=== PATIENT | male | born 1960 | race Caucasian/White ===

== ENCOUNTER 2016-11-30 07:50 | Day surgery (SDC) | payer BC ==
[~2016-11-30 07:50] MED LIST: Lactated Ringers 1,000 ML IV SCH; Lidocaine 1%/Sod Bicarbonate in NS 8.4% 1 ML Syringe PRN; Sodium Chloride 0.9% 10 ML Syringe FLUSH PRN
--- NOTE | 2016-11-30 08:20 | PCM.PREANE ---
Preanesthetic Assessment - Anesthesia/Transfusion/Family Hx Anesthesia History: Prior Anesthesia Without Reaction Family History of Anesthesia Reaction: No Transfusion History: No Prior Transfusion(s) - Review of Systems General: No Symptoms Pulmonary: No Symptoms Cardiovascular: No Symptoms Gastrointestinal: No Symptoms Neurological: No Symptoms Other: Reports: Diabetes - Physical Assessment NPO Status Date: 11/29/16 NPO Status Time: 17:00 Pulse: 74 O2 Sat by Pulse Oximetry: 96 Respiratory Rate: 16 Blood Pressure: 124/59 Temperature: 98 F Height: 5 ft 6 in Weight: 105.687 kg ASA Class: 2 Mental Status: Alert & Oriented x3 Airway Class: Mallampati = 1 Dentition: Reports: Normal Dentition Thyro-Mental Finger Breadths: 3 Mouth Opening Finger Breadths: 3 ROM/Head Extension: Full Lungs: Clear to Auscultation, Normal Respiratory Effort Cardiovascular: Regular Rate, Regular Rhythm - Allergies Allergies/Adverse Reactions: Allergies Allergy/AdvReac Type Severity Reaction Status Date / Time bee venom protein (honey bee) Allergy Cannot Verified 11/29/16 09:48 Remember - Blood Blood Available: No - Acknowledgements Anesthesia Type Planned: MAC Pt an Appropriate Candidate for the Planned Anesthesia: Yes Alternatives and Risks of Anesthesia Discussed w Pt/Guardian: Yes Pt/Guardian Understands and Agrees with Anesthesia Plan: Yes PreAnesthesia Questionnaire Cardiovascular History: Reports: High Cholesterol Other Cardiovascular History: dyslipidemia, Other Respiratory History: snoring Genitourinary History: Reports: Other (See Below) Other Genitourinary History: erectile dysfunction, hematuria Endocrine/Metabolic History: Reports: Diabetes, Type II, Obesity/BMI 30+ Other Endocrine/Metabolic History: proteinuria, glucosuria. Oncologic (Cancer) History: Reports: None - Past Surgical History GI Surgical History: Reports: Hernia Repair/Other - SUBSTANCE USE Smoking Status *Q: Never Smoker Tobacco Use Within Last Twelve Months: No Second Hand Smoke Exposure: No Days Per Week of Alcohol Use: 1 Number of Drinks Per Day: 1 Total Drinks Per Week: 1 Recreational Drug Use History: No - HOME MEDS Home Medications: Home Meds Simvastatin [Zocor] 10 mg PO DAILY 11/29/16 [History] Triamcinolone Acet/Dimethicone [Dermacinrx [place]] 11/29/16 [History] metFORMIN HCl [Metformin HCl] 1,000 mg PO DAILY 11/29/16 [History] - CURRENT (IN HOUSE) MEDS Current Meds: Current Medications Lactated Ringer's (Ringers, Lactated) 1,000 mls @ 125 mls/hr IV ASDIRECTED REBEKA Stop: 11/30/16 23:00 Lidocaine/Sodium Bicarbonate (Buffered Lidocaine 1% In Ns 8.4%) 0.25 ml .XX ONETIME PRN PRN Reason: Prior to IV Start Stop: 11/30/16 18:00 Sodium Chloride (Saline Flush) 10 ml FLUSH ASDIRECTED PRN PRN Reason: Keep Vein Open Stop: 11/30/16 18:00
[2016-11-30] MEDS ORDERED: Lidocaine 1% 2 ML ONE ×2 (08:52→08:53)
[2016-11-30] MEDS ORDERED: Propofol 200 MG/20 ML SDV ONE (08:52)
[2016-11-30] MEDS ORDERED: fentaNYL 100 MCG/2 ML SDV ONE (08:52)
--- NOTE | 2016-11-30 09:31 | PCM.OPNOTE ---
- General Post-Op/Procedure Note Date of Surgery/Procedure: 11/30/16 Operative Procedure(s): Colonoscopy Findings: Normal examination Pre Op Diagnosis: heme positive stools Post-Op Diagnosis: Endoscopically normal colon and rectum Anesthesia Technique: MAC, Moderate Sedation Primary Surgeon: Mike Chan Pathology: None EBL in mLs: 0 Complications: None Condition: Good Free Text/Narrative:: After adequate IV sedation and analgesia with monitoring the patient was placed on his left side. Perianal inspection and digital rectal examination of the anal canal was normal. The prostate was normal. A lubricated colonoscope was inserted into the rectum and advanced to the cecum without difficulty. The bowel preparation was excellent. The cecum, ascending colon, transverse, and descending colons were normal endoscopically. There were no inflammatory changes seen acute or chronic. The sigmoid and rectum likewise were unremarkable in both views. Photographs are taken for the patient and for the record. Air was removed as I finished the procedure.
--- NOTE | 2016-11-30 09:40 | PCM48HPAN ---
Post Anesthesia Note - EVALUATION WITHIN 48HRS OF ANESTHETIC Vital Signs in Normal Range: Yes Patient Participated in Evaluation: Yes Respiratory Function Stable: Yes Airway Patent: Yes Cardiovascular Function Stable: Yes Hydration Status Stable: Yes Pain Control Satisfactory: Yes Nausea and Vomiting Control Satisfactory: Yes Mental Status Recovered: Yes - COMMENTS/OBSERVATIONS Free Text/Narrative:: Verbalizing comfort, requesting some water.
[2016-11-30 09:41] VITALS: BP 128/85
== END 2016-11-30 10:00 | disposition home or self-care (01) ==
LOC: JD.SDS 07:50
PROVIDERS: ATTEND Surgery
DX: R19.5 Other fecal abnormalities (principal); E11.9 Type 2 diabetes mellitus without complications; E78.2 Mixed hyperlipidemia; Z68.41 Body mass index [BMI] 40.0-44.9, adult; Z91.030 Bee allergy status; Z79.84 Long term (current) use of oral hypoglycemic drugs; Z79.899 Other long term (current) drug therapy; Z98.890 Other specified postprocedural states
CPT/HCPCS: 45378; 82962; J3010; J7120; 00810; J2704

== ENCOUNTER 2017-01-11 07:23 | Emergency (ER) | payer BC, OTHER ==
--- NOTE | 2017-01-11 07:49 | EDM.PDOC ---
ED HPI GENERAL MEDICAL PROBLEM - General Chief Complaint: Back Pain or Injury Stated Complaint: BACK INJURY Time Seen by Provider: 01/11/17 07:48 Source of Information: Reports: Patient, RN Notes Reviewed - History of Present Illness INITIAL COMMENTS - FREE TEXT/NARRATIVE: 56-year-old male comes in with left low back, buttock discomfort radiating to left lower extremity. This came on yesterday afternoon at work. 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 He Lifted a bulky heavy package earlier in the morning but did okay with that. Had fairly sudden onset of the discomfort sometime later mid afternoon yesterday. The pain Continues starting in the left buttock area and radiating down the left lower extremity clear down to the calf muscle. He has had intermittent paresthesias of the left foot. He had Symptoms of this nature about 2 or 2-1/2 years ago diagnosed as sciatica and did end up getting an injection that did give him very good relief having done well up until this episode starting yesterday. He has taken some high-dose ibuprofen at home and also did take a couple of leftover pain pills last evening with his last oxycodone about this 8 hours ago. He has pain at rest, much worse with certain types of motion. He also is type II diabetic on metformin. 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 Lower Back Pain Score (Numeric/FACES): 7 - Related Data Allergies Allergy/AdvReac Type Severity Reaction Status Date / Time bee venom protein (honey bee) Allergy Cannot Verified 01/11/17 07:39 Remember Home Meds: Home Meds Simvastatin [Zocor] 10 mg PO DAILY 11/29/16 [History] metFORMIN HCl [Metformin HCl] 1,000 mg PO DAILY 11/29/16 [History] Triamcinolone Acetonide 1 applic TP ASDIRECTED 11/30/16 [History] Past Medical History HEENT History: Reports: Impaired Vision Other HEENT History: wears eyeglasses Cardiovascular History: Reports: High Cholesterol Other Cardiovascular History: dyslipidemia, Respiratory History: Reports: Sleep Apnea Other Respiratory History: snoring, states sleeps on abdominal side. Genitourinary History: Reports: Other (See Below) Other Genitourinary History: erectile dysfunction, hematuria Musculoskeletal History: Reports: Back Pain, Chronic, Fracture, Other (See Below ) Other Musculoskeletal History: sciatic nerve issues after fall 2 1/2 yrs ago. Endocrine/Metabolic History: Reports: Diabetes, Type II, Obesity/BMI 30+ Other Endocrine/Metabolic History: proteinuria, glucosuria. Oncologic (Cancer) History: Reports: None Dermatologic History: Reports: Other (See Below) Other Dermatologic History: L) ankle rash. - Infectious Disease History Infectious Disease History: Reports: Chicken Pox - Past Surgical History GI Surgical History: Reports: Hernia Repair/Other Social & Family History - Tobacco Use Smoking Status *Q: Never Smoker Second Hand Smoke Exposure: No - Caffeine Use Caffeine Use: Reports: Coffee - Alcohol Use Days Per Week of Alcohol Use: 1 Number of Drinks Per Day: 1 Total Drinks Per Week: 1 - Recreational Drug Use Recreational Drug Use: No Drug Use in Last 12 Months: No ED ROS GENERAL - Review of Systems Review Of Systems: See Below Constitutional: Denies: Fever, Chills, Diaphoresis HEENT: Reports: No Symptoms Respiratory: Denies: Shortness of Breath, Pleuritic Chest Pain Cardiovascular: Denies: Chest Pain GI/Abdominal: Denies: Abdominal Pain, Nausea, Vomiting Musculoskeletal: Reports: Back Pain (L low back and buttock with sharp radiation down LLE) Skin: Reports: No Symptoms Neurological: Reports: Numbness (L foot, mostly gone at this time) ED EXAM,LOWER BACK PAIN/INJURY - Physical Exam Exam: See Below General Appearance: Alert, Mild Distress Throat/Mouth: Normal Inspection Head: Atraumatic Neck: Supple, Full Range of Motion Respiratory/Chest: No Respiratory Distress, Lungs Clear, Normal Breath Sounds Cardiovascular: Regular Rate, Rhythm GI/Abdominal: Soft, Non-Tender Back Exam: Other (there is tenderness of the left low back). No: Paraspinal Tenderness, Vertebral Tenderness Extremities: No: Pedal Edema, Leg Pain Neurological: No Motor/Sensory Deficits, Straight Leg Raise (L) (quite severe pain with straight leg raising on the left) Skin Exam: Warm, Dry, Normal Color Course - Vital Signs Last Recorded V/S: Last Vital Signs Temp 97.8 F 01/11/17 07:30 Pulse 72 01/11/17 09:47 Resp 16 01/11/17 09:47 BP 108/60 01/11/17 09:47 Pulse Ox 97 01/11/17 09:47 - Orders/Labs/Meds Meds: Medications Discontinued Medications Generic Name Dose Route Start Last Admin Trade Name Freq PRN Reason Stop Dose Admin Hydromorphone HCl 1 mg 01/11/17 09:39 01/11/17 09:45 Dilaudid IM 01/11/17 09:40 1 mg ONETIME ONE Administration Methylprednisolone Sodium Succinate 125 mg 01/11/17 08:08 01/11/17 08:24 Solu-Medrol IM 01/11/17 08:09 125 mg ONETIME ONE Administration Oxycodone/Acetaminophen 1 tab 01/11/17 08:08 01/11/17 08:22 Percocet 325-5 Mg PO 01/11/17 08:09 1 tab ONETIME ONE Administration - Re-Assessments/Exams Free Text/Narrative Re-Assessment/Exam: 01/11/17 09:56 have given Solu-Medrol 125 mg IM, will start him on oral prednisone, gave him an oral Percocet. That did not relieve the pain much so now have also given Dilaudid 1 mg IM. Discharge instructions as documented. Departure - Departure Time of Disposition: 08:25 Disposition: Home, Self-Care 01 Condition: Fair Clinical Impression: Sciatica Qualifiers: Laterality: left Qualified Code(s): M54.32 - Sciatica, left side - Discharge Information Instructions: Sciatica, [id number] Referrals: Tori Elias PA [Primary Care Provider] - Forms: ED Department Discharge, ED Return to Work/School Form Additional Instructions: rest back, alternate ice and heat the next few days as needed, continue motrin or ibuprofen 800 mg 3 times daily with food, drink plenty of water when taking ibuprofen to help protect your kidneys. Percocet pain pill q 6 to 8 hr as needed for severe pain, prednisone steroid medication as prescribed for swelling and inflammation. Keep appt. for Monday, get steroid injection as soon as possible, Physical Therapy, follow up with [facility] as needed.
[2017-01-11] MEDS ORDERED: methylPREDNISolone Sodium Succinate 125 MG/2 ML SDV IM ONE (08:08)
[2017-01-11] MEDS ORDERED: Acetaminophen/oxyCODONE 325-5 MG Tab PO ONE (08:08)
[2017-01-11] MEDS ORDERED: HYDROmorphone 1 MG/ML Syringe IM ONE (09:39)
[2017-01-11 09:48] VITALS: BP 108/60
== END 2017-01-11 09:50 | disposition home or self-care (01) ==
LOC: JD.ED 07:23
DX: M54.42 Lumbago with sciatica, left side (principal); G47.30 Sleep apnea, unspecified; E11.9 Type 2 diabetes mellitus without complications; E78.5 Hyperlipidemia, unspecified; E66.9 Obesity, unspecified; Z98.890 Other specified postprocedural states; Z79.84 Long term (current) use of oral hypoglycemic drugs; Z91.030 Bee allergy status; Z68.36 Body mass index [BMI] 36.0-36.9, adult
CPT/HCPCS: 96372; 99283; A9270; J1170; J2930

== ENCOUNTER 2018-05-04 17:40 | Emergency (ER) | payer BC ==
[2018-05-04 18:12] VITALS: BP 159/93
[2018-05-04] MEDS ORDERED: Clopidogrel 75 MG Tab PO ONE (19:55)
[2018-05-04] MEDS ORDERED: Aspirin 81 MG Tab.Chew PO ONE (19:59)
[2018-05-04] MEDS ORDERED: Heparin Sodium/D5W 25,000 UNITS/500 ML BAG IV SCH (20:15)
--- NOTE | 2018-05-04 20:48 | EDM.PDOC ---
ED HPI GENERAL MEDICAL PROBLEM - General Chief Complaint: Neurological Problem Stated Complaint: BLOCKAGE SENT BY CANDI ELIAS Time Seen by Provider: 05/04/18 18:01 Source of Information: Reports: Patient, RN Notes Reviewed - History of Present Illness INITIAL COMMENTS - FREE TEXT/NARRATIVE: 58-year-old male has been called from the medical clinic with advise to come here to the ED regarding very urgent findings on his CT angiogram of this afternoon and also MRI of his brain. Symptoms of dizziness for about the past 10 days more frequent more severe the last 3 days. Did see a provider 2 days ago , was scheduled for carotid ultrasound which did show at least some abnormality. He was than scheduled for follow-up CT angiogram today of his neck and also did have MRI of his brain. 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 Was some blockage of the one anterior external carotid but not severe. MRI of his brain shows some small cerebellar infarcts which appear relatively acute likely related to his severe vertebral artery blockage. At this time he has no headache, nausea or vomiting. He has no focal weakness. No speech difficulty. He has no chest pain or difficulty breathing. He does have history of type 2 diabetes, has been on metformin for about a year or longer. He has been previously prescribed a statin medication but has not been taking that due to side effects encountered with that medication. He denies history of known hypertension requiring medical treatment. He does not smoke. Works for [employer] running a [employer]. 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: Other (see below) Headache Pain Score (Numeric/FACES): 1 - Related Data Allergies Allergy/AdvReac Type Severity Reaction Status Date / Time bee venom protein (honey bee) Allergy Cannot Verified 01/11/17 07:39 Remember Home Meds: Home Meds Simvastatin [Zocor] 10 mg PO DAILY 11/29/16 [History] metFORMIN HCl [Metformin HCl] 500 mg PO BID 11/29/16 [History] Cholecalciferol (Vitamin D3) [Vitamin D3] 1,000 unit PO DAILY 05/04/18 [History] Fish Oil/DHA/EPA [Fish Oil 1,200 MG] 1,200 mg PO DAILY 05/04/18 [History] Past Medical History HEENT History: Reports: Impaired Vision Other HEENT History: wears eyeglasses Cardiovascular History: Reports: High Cholesterol Other Cardiovascular History: dyslipidemia, Respiratory History: Reports: Sleep Apnea Other Respiratory History: snoring, states sleeps on abdominal side;c-papat home but doesn't use it Genitourinary History: Reports: Other (See Below) Other Genitourinary History: erectile dysfunction, hematuria Musculoskeletal History: Reports: Back Pain, Chronic, Fracture, Other (See Below ) Other Musculoskeletal History: sciatic nerve issues after fall 2 1/2 yrs ago. Endocrine/Metabolic History: Reports: Diabetes, Type II, Obesity/BMI 30+ Other Endocrine/Metabolic History: proteinuria, glucosuria. Oncologic (Cancer) History: Reports: None Dermatologic History: Reports: Other (See Below) Other Dermatologic History: L) ankle rash. - Infectious Disease History Infectious Disease History: Reports: Chicken Pox - Past Surgical History GI Surgical History: Reports: Hernia Repair/Other Social & Family History - Tobacco Use Smoking Status *Q: Never Smoker - Caffeine Use Caffeine Use: Reports: Coffee, Soda - Recreational Drug Use Recreational Drug Use: No ED ROS GENERAL - Review of Systems Review Of Systems: See Below Constitutional: Denies: Fever, Chills, Diaphoresis HEENT: Reports: Vertigo (had 1 severe episode about 5 days ago, more mild episodes off and on for about the past week or more). Denies: Ear Discharge, Ear Pain Respiratory: Denies: Shortness of Breath Cardiovascular: Denies: Chest Pain GI/Abdominal: Denies: Abdominal Pain, Nausea, Vomiting Skin: Denies: Rash Neurological: Reports: Dizziness (has had frequent episodes of lightheadedness for the past 10 days, more frequent the past few days and occasional episodes of vertigo as well) ED EXAM, DIZZINESS - Physical Exam Exam: See Below General Appearance: Alert, No Apparent Distress Eye Exam: Bilateral Eye: PERRL Ears: Normal External Exam Nose: Normal Inspection Throat/Mouth: Normal Inspection Head Exam: Atraumatic. No: Facial Swelling Neck: Supple, Full Range of Motion Respiratory/Chest: No Respiratory Distress, Lungs Clear, Chest Non-Tender Cardiovascular: Regular Rate, Rhythm GI/Abdominal: Soft, Non-Tender Neurological: Alert, Normal Mood/Affect, Normal Dorsiflexion, Normal Plantar Flexion, No Motor/Sensory Deficits, Other (finger to nose testing normal) Back Exam: No: CVA Tenderness (L), CVA Tenderness (R) Extremities: Normal Inspection. No: Pedal Edema, Leg Pain Skin Exam: Warm, Dry, Normal Color Course - Vital Signs Last Recorded V/S: Last Vital Signs Temp 98.0 F 05/04/18 18:10 Pulse 86 05/04/18 18:10 Resp 20 05/04/18 18:10 BP 159/93 H 05/04/18 18:10 Pulse Ox 97 05/04/18 18:10 - Orders/Labs/Meds Meds: Medications Discontinued Medications Generic Name Dose Route Start Last Admin Trade Name Teresita PRN Reason Stop Dose Admin Aspirin 324 mg 05/04/18 19:59 05/04/18 20:10 Aspirin PO 05/04/18 20:00 324 mg ONETIME ONE Administration Clopidogrel Bisulfate 150 mg 05/04/18 19:55 05/04/18 20:10 Plavix PO 05/04/18 19:56 150 mg ONETIME ONE Administration Heparin Sodium/Dextrose 25,000 units in 500 mls @ 20 mls/hr 05/04/18 20:15 20:11 Heparin 25,000 Units In D5w 500 Ml IV 1,000 units/hr SEECOMMENT REBEKA 20 mls/hr Administration 1,000 UNITS/HR - Re-Assessments/Exams Free Text/Narrative Re-Assessment/Exam: 05/04/18 20:25. I called [facility] shortly after exam to discuss findings on CT angio and MRI brain. I did get to visit with Neurologist mental retardation nurse and also Neurosurgeon mental retardation nurse. They agree he should be transferred this evening [facility]. He will be admitted to neuro ICU, Dr Sifuentes accepting Phys. They have suggested we give Aspirin 325, plavix 150, start on heparin drip at 1,000 units per hour, no heparin bolus. That all has been done, we will be sending him air ambulance, [facility] available imediately, doing the transfer. 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
== END 2018-05-04 20:43 ==
LOC: JD.ED 17:40
DX: I65.03 Occlusion and stenosis of bilateral vertebral arteries (principal); I63.9 Cerebral infarction, unspecified; G46.4 Cerebellar stroke syndrome; E78.00 Pure hypercholesterolemia, unspecified; Z91.030 Bee allergy status; Z79.84 Long term (current) use of oral hypoglycemic drugs; Z79.899 Other long term (current) drug therapy
CPT/HCPCS: 96365; 99284; A9270; J1644